=== PATIENT | female | born 1945 | race Caucasian/White ===

== ENCOUNTER 2020-11-15 12:54 | Inpatient (IN) | payer MEDICARE, OTHER ==
[~2020-11-15] VITALS: Ht 154.9 cm; Wt 67.1 kg
[2020-11-15 16:00] VITALS: BP 141/73
[2020-11-15 16:41] VITALS: BP 141/73
[2020-11-15] MEDS: ACETAMINOPHEN 325 MG TABLET PO PRN (16:41)
[2020-11-15] MEDS ORDERED: DEXTROSE 50%-WATER 25 GM/50 ML SYRINGE IVP PRN (16:45)
[2020-11-15] MEDS ORDERED: INSULIN LISPRO 100 UNITS/ML SQ PRN (16:45)
[2020-11-15 17:03] VITALS: BP 141/73
[2020-11-15] MEDS: MetFORMIN HCL 850 MG TABLET PO SCH (17:34)
[2020-11-15 17:49] LABS: GLUCOMETER DEV NAME(LOC) 2WR.2B; GLUCOSE,POINT OF CARE 147 MG/DL (70-110)
[2020-11-15] MEDS: SENNA 187 MG TABLET PO SCH (20:07)
[2020-11-15] MEDS: ATORVASTATIN CALCIUM 40 MG TABLET PO SCH (20:07)
[2020-11-15] MEDS: ETHYL ALCOHOL 62% ANTISEPTIC NASAL INHALANT 0.6 ML AMPUL NASAL SCH (20:07)
[2020-11-15] MEDS: DOCUSATE SODIUM 100 MG CAPSULE PO SCH (20:07)
[2020-11-15 21:18] LABS: GLUCOMETER DEV NAME(LOC) 2WR.1C; GLUCOSE,POINT OF CARE 101 MG/DL (70-110)
[2020-11-16 00:14] VITALS: BP 133/75
[2020-11-16] MEDS: ACETAMINOPHEN 325 MG TABLET PO PRN ×6 (00:14→23:53)
[2020-11-16 06:09] LABS: GLUCOMETER DEV NAME(LOC) 2WR.1C; GLUCOSE,POINT OF CARE 111 MG/DL (70-110)
[2020-11-16] MEDS: MetFORMIN HCL 850 MG TABLET PO SCH ×2 (08:24→17:22)
[2020-11-16] MEDS: ASPIRIN 81 MG CHEWABLE TABLET PO SCH (08:25)
[2020-11-16] MEDS: DOCUSATE SODIUM 100 MG CAPSULE PO SCH ×2 (08:25→19:45)
[2020-11-16] MEDS: HYDROCHLOROTHIAZIDE 25 MG TABLET PO SCH (08:25)
[2020-11-16] MEDS: ETHYL ALCOHOL 62% ANTISEPTIC NASAL INHALANT 0.6 ML AMPUL NASAL SCH ×2 (08:25→19:45)
[2020-11-16] MEDS: LOSARTAN POTASSIUM 50 MG TABLET PO SCH (08:26)
[2020-11-16] MEDS: ENOXAPARIN SODIUM 40 MG/0.4 ML PF SYRINGE SQ SCH (08:27)
[2020-11-16] MEDS ORDERED: LOSARTAN POTASSIUM 50 MG TABLET PO SCH (09:00)
[2020-11-16 09:20] VITALS: BP 135/63
[2020-11-16 11:15] LABS: BASOPHILS % (AUTO) 0.2 % (0.0-2.0); EOSINOPHILS % (AUTO) 3.6 % (1.0-6.0); HEMATOCRIT 32.3 % (36-46); HEMOGLOBIN 10.6 g/dL (12.0-16.0); LYMPHOCYTES # (AUTO) 1.7 K/uL (1.0-4.8); MEAN CORPUSCULAR HEMOGLOBIN 29.8 pg (26.0-34.0); MEAN CORPUSCULAR HGB CONC 32.9 G/dL (31.0-37.0); MEAN CORPUSCULAR VOLUME 90 fL (80-100); MONOCYTES # (AUTO) 0.4 K/uL (0.1-1.0); MONOCYTES % (AUTO) 6.3 % (2.0-9.0); NEUTROPHILS # (AUTO) 4.1 K/uL (1.8-7.7); NEUTROPHILS % (AUTO) 62.9 % (40.0-70.0); PLATELET COUNT (AUTO) 187 K/uL (150-450); RED BLOOD CELL COUNT(AUTO) 3.57 MIL/uL (4.00-5.20); RED CELL DISTRIBUTION WIDTH 13.4 % (11.5-14.5)
[2020-11-16 11:51] LABS: ALANINE AMINOTRANSFERASE 20 U/L (12-78); ALBUMIN 3.1 g/dL (3.4-5.0); ALKALINE PHOSPHATASE 75 U/L (46-116); ANION GAP 8 mmol/L (8-16); ASPARTATE AMINOTRANSFERASE 21 U/L (15-37); BILIRUBIN,TOTAL 0.6 mg/dL (0.1-1.0); CALCIUM, TOTAL 10.3 mg/dL (8.8-10.5); CARBON DIOXIDE 30 mmol/L (22-29); CHLORIDE 108 mmol/L (98-107); CREATININE 0.71 mg/dL (0.60-1.30); GLUCOSE,RANDOM 114 mg/dL (70-110); SODIUM SERUM 146 mmol/L (136-145); TOTAL PROTEIN, SERUM 6.7 g/dL (6.4-8.2); UREA NITROGEN, BLOOD 30 mg/dL (7-18)
[2020-11-16 11:53] LABS: GLOMERULAR FILTR. RATE CALC > 60 mL/min (>60)
[2020-11-16 13:40] LABS: GLUCOMETER DEV NAME(LOC) 2WR.1C; GLUCOSE,POINT OF CARE 112 MG/DL (70-110)
[2020-11-16 16:08] VITALS: BP 108/53
[2020-11-16 17:50] LABS: GLUCOMETER DEV NAME(LOC) 2WR.1C; GLUCOSE,POINT OF CARE 93 MG/DL (70-110)
[2020-11-16] MEDS: SENNA 187 MG TABLET PO SCH (19:45)
[2020-11-16] MEDS: ATORVASTATIN CALCIUM 40 MG TABLET PO SCH (19:45)
[2020-11-16 21:19] LABS: GLUCOMETER DEV NAME(LOC) 2WR.1C; GLUCOSE,POINT OF CARE 115 MG/DL (70-110)
[2020-11-17 00:53] VITALS: BP 130/75
[2020-11-17] MEDS: ACETAMINOPHEN 325 MG TABLET PO PRN ×6 (04:05→22:56)
[2020-11-17 06:06] LABS: GLUCOMETER DEV NAME(LOC) 2WR.2B; GLUCOSE,POINT OF CARE 100 MG/DL (70-110)
[2020-11-17] MEDS: LOSARTAN POTASSIUM 50 MG TABLET PO SCH (08:04)
[2020-11-17] MEDS: ASPIRIN 81 MG CHEWABLE TABLET PO SCH (08:04)
[2020-11-17] MEDS: HYDROCHLOROTHIAZIDE 25 MG TABLET PO SCH (08:04)
[2020-11-17] MEDS: MetFORMIN HCL 850 MG TABLET PO SCH ×2 (08:04→17:44)
[2020-11-17] MEDS: ENOXAPARIN SODIUM 40 MG/0.4 ML PF SYRINGE SQ SCH (08:04)
[2020-11-17 08:05] VITALS: BP 150/69
[2020-11-17] MEDS: DOCUSATE SODIUM 100 MG CAPSULE PO SCH ×3 (08:06→20:19)
[2020-11-17] MEDS: ETHYL ALCOHOL 62% ANTISEPTIC NASAL INHALANT 0.6 ML AMPUL NASAL SCH ×2 (09:00→20:17)
[2020-11-17 12:29] LABS: GLUCOMETER DEV NAME(LOC) 2WR.1C; GLUCOSE,POINT OF CARE 88 MG/DL (70-110)
[2020-11-17] MEDS: METHYL SALICYLATE/MENTHOL 85 GM CREAM TP PRN (15:51)
[2020-11-17 16:04] VITALS: BP 135/68
[2020-11-17] MEDS: ATORVASTATIN CALCIUM 40 MG TABLET PO SCH (20:17)
[2020-11-17] MEDS: SENNA 187 MG TABLET PO SCH ×2 (20:17→20:19)
[2020-11-17 22:02] LABS: GLUCOMETER DEV NAME(LOC) 2WR.2B; GLUCOSE,POINT OF CARE 132 MG/DL (70-110)
[2020-11-17 22:58] VITALS: BP 136/73
[2020-11-18] MEDS: ACETAMINOPHEN 325 MG TABLET PO PRN ×4 (04:02→23:44)
[2020-11-18 05:18] LABS: GLUCOMETER DEV NAME(LOC) 2WR.1C; GLUCOSE,POINT OF CARE 137 MG/DL (70-110)
[2020-11-18 06:19] LABS: GLUCOMETER DEV NAME(LOC) 2WR.1C; GLUCOSE,POINT OF CARE 101 MG/DL (70-110)
[2020-11-18] MEDS: ENOXAPARIN SODIUM 40 MG/0.4 ML PF SYRINGE SQ SCH (08:03)
[2020-11-18] MEDS: MetFORMIN HCL 850 MG TABLET PO SCH ×2 (08:03→19:52)
[2020-11-18] MEDS: ASPIRIN 81 MG CHEWABLE TABLET PO SCH (08:03)
[2020-11-18] MEDS: ETHYL ALCOHOL 62% ANTISEPTIC NASAL INHALANT 0.6 ML AMPUL NASAL SCH ×2 (08:04→20:06)
[2020-11-18] MEDS: HYDROCHLOROTHIAZIDE 25 MG TABLET PO SCH (08:04)
[2020-11-18] MEDS: DOCUSATE SODIUM 100 MG CAPSULE PO SCH ×2 (08:04→20:06)
[2020-11-18] MEDS: LOSARTAN POTASSIUM 50 MG TABLET PO SCH (08:04)
[2020-11-18 08:05] VITALS: BP 135/57
[2020-11-18 13:22] LABS: GLUCOMETER DEV NAME(LOC) 2WR.1C; GLUCOSE,POINT OF CARE 100 MG/DL (70-110)
[2020-11-18 15:41] VITALS: BP 133/82
[2020-11-18] MEDS: METHYL SALICYLATE/MENTHOL 85 GM CREAM TP PRN ×2 (15:41→21:08)
[2020-11-18] MEDS: ATORVASTATIN CALCIUM 40 MG TABLET PO SCH (20:06)
[2020-11-18] MEDS: SENNA 187 MG TABLET PO SCH (20:08)
[2020-11-18 21:47] LABS: GLUCOMETER DEV NAME(LOC) 2WR.2B; GLUCOSE,POINT OF CARE 114 MG/DL (70-110)
[2020-11-18 22:51] LABS: GLUCOMETER DEV NAME(LOC) 2WR.1C; GLUCOSE,POINT OF CARE 91 MG/DL (70-110)
[2020-11-19 00:44] VITALS: BP 147/58
[2020-11-19] MEDS ORDERED: ATOR40TA28 PO (01:10)
[2020-11-19] MEDS ORDERED: METF-961 PO (01:10)
[2020-11-19] MEDS ORDERED: LOSA50TA37 PO (01:10)
[2020-11-19] MEDS ORDERED: ACET-2247 PO (01:10)
[2020-11-19] MEDS ORDERED: HYDR25TA2 PO (01:10)
[2020-11-19] MEDS ORDERED: ASPI-1450 PO (01:10)
[2020-11-19] MEDS ORDERED: SENN8.6T90 PO (01:10)
[2020-11-19] MEDS ORDERED: DOCU-270 PO (01:10)
[2020-11-19] MEDS: ACETAMINOPHEN 325 MG TABLET PO PRN ×4 (04:42→23:25)
[2020-11-19 06:39] LABS: GLUCOMETER DEV NAME(LOC) 2WR.1C; GLUCOSE,POINT OF CARE 94 MG/DL (70-110)
[2020-11-19] MEDS: MetFORMIN HCL 850 MG TABLET PO SCH ×2 (07:57→17:37)
[2020-11-19] MEDS: DOCUSATE SODIUM 100 MG CAPSULE PO SCH ×2 (07:57→21:00)
[2020-11-19] MEDS: LOSARTAN POTASSIUM 50 MG TABLET PO SCH (07:58)
[2020-11-19] MEDS: ASPIRIN 81 MG CHEWABLE TABLET PO SCH (07:58)
[2020-11-19] MEDS: HYDROCHLOROTHIAZIDE 25 MG TABLET PO SCH (07:58)
[2020-11-19] MEDS: METHYL SALICYLATE/MENTHOL 85 GM CREAM TP PRN (08:00)
[2020-11-19] MEDS: ENOXAPARIN SODIUM 40 MG/0.4 ML PF SYRINGE SQ SCH (08:01)
[2020-11-19 09:00] VITALS: BP 137/64
[2020-11-19] MEDS: ETHYL ALCOHOL 62% ANTISEPTIC NASAL INHALANT 0.6 ML AMPUL NASAL SCH ×2 (09:00→21:16)
[2020-11-19 12:27] LABS: GLUCOMETER DEV NAME(LOC) 2WR.1C; GLUCOSE,POINT OF CARE 89 MG/DL (70-110)
[2020-11-19 16:08] VITALS: BP 131/69
[2020-11-19 17:19] LABS: GLUCOMETER DEV NAME(LOC) 2WR.1C; GLUCOSE,POINT OF CARE 98 MG/DL (70-110)
[2020-11-19] MEDS: SENNA 187 MG TABLET PO SCH (21:00)
[2020-11-19] MEDS: ATORVASTATIN CALCIUM 40 MG TABLET PO SCH (21:17)
[2020-11-19 22:38] LABS: GLUCOMETER DEV NAME(LOC) 2WR.2B; GLUCOSE,POINT OF CARE 98 MG/DL (70-110)
[2020-11-20 00:25] VITALS: BP 135/69
[2020-11-20] MEDS: ACETAMINOPHEN 325 MG TABLET PO PRN ×3 (05:08→20:39)
[2020-11-20 05:41] LABS: GLUCOMETER DEV NAME(LOC) 2WR.2B; GLUCOSE,POINT OF CARE 84 MG/DL (70-110)
[2020-11-20 08:19] VITALS: BP 135/57
[2020-11-20] MEDS: MetFORMIN HCL 850 MG TABLET PO SCH ×2 (08:58→17:33)
[2020-11-20] MEDS: ETHYL ALCOHOL 62% ANTISEPTIC NASAL INHALANT 0.6 ML AMPUL NASAL SCH ×2 (08:58→20:39)
[2020-11-20] MEDS: ASPIRIN 81 MG CHEWABLE TABLET PO SCH (08:59)
[2020-11-20] MEDS: DOCUSATE SODIUM 100 MG CAPSULE PO SCH ×2 (09:00→20:38)
[2020-11-20] MEDS: HYDROCHLOROTHIAZIDE 25 MG TABLET PO SCH (09:00)
[2020-11-20] MEDS: LOSARTAN POTASSIUM 50 MG TABLET PO SCH (09:00)
[2020-11-20] MEDS: ENOXAPARIN SODIUM 40 MG/0.4 ML PF SYRINGE SQ SCH (09:01)
[2020-11-20] MEDS: METHYL SALICYLATE/MENTHOL 85 GM CREAM TP PRN (12:06)
[2020-11-20 12:37] LABS: GLUCOMETER DEV NAME(LOC) 2WR.2B; GLUCOSE,POINT OF CARE 102 MG/DL (70-110)
[2020-11-20 16:01] VITALS: BP 140/28
[2020-11-20 18:28] LABS: GLUCOMETER DEV NAME(LOC) 2WR.1C; GLUCOSE,POINT OF CARE 87 MG/DL (70-110)
[2020-11-20] MEDS: SENNA 187 MG TABLET PO SCH (20:38)
[2020-11-20] MEDS: ATORVASTATIN CALCIUM 40 MG TABLET PO SCH (20:38)
[2020-11-20 21:19] LABS: GLUCOMETER DEV NAME(LOC) 2WR.2B; GLUCOSE,POINT OF CARE 70 MG/DL (70-110)
[2020-11-21 04:09] VITALS: BP 145/71
[2020-11-21] MEDS: ACETAMINOPHEN 325 MG TABLET PO PRN ×4 (04:09→18:06)
[2020-11-21 05:50] LABS: GLUCOMETER DEV NAME(LOC) 2WR.2B; GLUCOSE,POINT OF CARE 83 MG/DL (70-110)
[2020-11-21] MEDS: MetFORMIN HCL 850 MG TABLET PO SCH (08:03)
[2020-11-21] MEDS: ETHYL ALCOHOL 62% ANTISEPTIC NASAL INHALANT 0.6 ML AMPUL NASAL SCH ×2 (08:04→20:33)
[2020-11-21] MEDS: HYDROCHLOROTHIAZIDE 25 MG TABLET PO SCH (08:04)
[2020-11-21] MEDS: DOCUSATE SODIUM 100 MG CAPSULE PO SCH ×2 (08:04→20:33)
[2020-11-21] MEDS: ENOXAPARIN SODIUM 40 MG/0.4 ML PF SYRINGE SQ SCH (08:04)
[2020-11-21] MEDS: ASPIRIN 81 MG CHEWABLE TABLET PO SCH (08:04)
[2020-11-21] MEDS: LOSARTAN POTASSIUM 50 MG TABLET PO SCH (08:04)
[2020-11-21 08:10] VITALS: BP 144/56
[2020-11-21 13:08] LABS: GLUCOMETER DEV NAME(LOC) 2WR.2B; GLUCOSE,POINT OF CARE 95 MG/DL (70-110)
[2020-11-21] MEDS: MetFORMIN HCL 500 MG TABLET PO SCH (17:32)
[2020-11-21] MEDS: METHYL SALICYLATE/MENTHOL 85 GM CREAM TP PRN (20:32)
[2020-11-21] MEDS: ATORVASTATIN CALCIUM 40 MG TABLET PO SCH (20:33)
[2020-11-21] MEDS: SENNA 187 MG TABLET PO SCH (20:33)
[2020-11-21 21:16] LABS: GLUCOMETER DEV NAME(LOC) 2WR.2B; GLUCOSE,POINT OF CARE 83 MG/DL (70-110)
[2020-11-21 21:21] LABS: GLUCOMETER DEV NAME(LOC) 2WR.1C; GLUCOSE,POINT OF CARE 81 MG/DL (70-110)
[2020-11-22 04:09] VITALS: BP_SYST 148; BP_SYST 154; BP_DIAS 62
[2020-11-22] MEDS: ACETAMINOPHEN 325 MG TABLET PO PRN ×4 (04:09→23:18)
[2020-11-22 06:04] LABS: GLUCOMETER DEV NAME(LOC) 2WR.2B; GLUCOSE,POINT OF CARE 95 MG/DL (70-110)
[2020-11-22] MEDS: ASPIRIN 81 MG CHEWABLE TABLET PO SCH (08:26)
[2020-11-22] MEDS: LOSARTAN POTASSIUM 50 MG TABLET PO SCH (08:26)
[2020-11-22] MEDS: HYDROCHLOROTHIAZIDE 25 MG TABLET PO SCH (08:26)
[2020-11-22] MEDS: MetFORMIN HCL 500 MG TABLET PO SCH ×2 (08:26→17:26)
[2020-11-22 08:27] VITALS: BP 145/74
[2020-11-22] MEDS: ENOXAPARIN SODIUM 40 MG/0.4 ML PF SYRINGE SQ SCH (08:27)
[2020-11-22] MEDS: ETHYL ALCOHOL 62% ANTISEPTIC NASAL INHALANT 0.6 ML AMPUL NASAL SCH ×2 (08:29→20:07)
[2020-11-22] MEDS: DOCUSATE SODIUM 100 MG CAPSULE PO SCH ×2 (08:32→20:07)
[2020-11-22 13:09] LABS: GLUCOMETER DEV NAME(LOC) 2WR.2B; GLUCOSE,POINT OF CARE 86 MG/DL (70-110)
[2020-11-22 16:24] VITALS: BP 147/67
[2020-11-22 18:43] LABS: GLUCOMETER DEV NAME(LOC) 2WR.1C; GLUCOSE,POINT OF CARE 112 MG/DL (70-110)
[2020-11-22] MEDS: METHYL SALICYLATE/MENTHOL 85 GM CREAM TP PRN (20:06)
[2020-11-22] MEDS: ATORVASTATIN CALCIUM 40 MG TABLET PO SCH (20:07)
[2020-11-22] MEDS: SENNA 187 MG TABLET PO SCH (20:08)
[2020-11-22 21:32] LABS: GLUCOMETER DEV NAME(LOC) 2WR.1C; GLUCOSE,POINT OF CARE 103 MG/DL (70-110)
[2020-11-23 00:18] VITALS: BP 137/64
[2020-11-23] MEDS: ACETAMINOPHEN 325 MG TABLET PO PRN (04:36)
[2020-11-23 06:19] LABS: GLUCOMETER DEV NAME(LOC) 2WR.1C; GLUCOSE,POINT OF CARE 92 MG/DL (70-110)
[2020-11-23 08:01] VITALS: BP 144/53
[2020-11-23] MEDS: ETHYL ALCOHOL 62% ANTISEPTIC NASAL INHALANT 0.6 ML AMPUL NASAL SCH (08:48)
[2020-11-23] MEDS: MetFORMIN HCL 500 MG TABLET PO SCH (08:48)
[2020-11-23] MEDS: ASPIRIN 81 MG CHEWABLE TABLET PO SCH (08:48)
[2020-11-23] MEDS: DOCUSATE SODIUM 100 MG CAPSULE PO SCH (08:49)
[2020-11-23] MEDS: LOSARTAN POTASSIUM 50 MG TABLET PO SCH (08:50)
[2020-11-23] MEDS: HYDROCHLOROTHIAZIDE 25 MG TABLET PO SCH (08:50)
[2020-11-23] MEDS: ENOXAPARIN SODIUM 40 MG/0.4 ML PF SYRINGE SQ SCH (08:52)
[2020-11-23] MEDS ORDERED: ENOX40DI9 SQ (09:38)
[2020-11-23 12:40] LABS: GLUCOMETER DEV NAME(LOC) 2WR.2B; GLUCOSE,POINT OF CARE 88 MG/DL (70-110)
== END 2020-11-23 14:45 | disposition home health service (06) | DRG 536 ==
LOC: 2WR 15:32
PROVIDERS: ADMIT Physical Medicine & Rehabilitation; ATTEND Physical Medicine & Rehabilitation
DX: S72.141A Displaced intertrochanteric fracture of right femur, initial encounter for closed fracture (principal); I69.351 Hemiplegia and hemiparesis following cerebral infarction affecting right dominant side; E11.9 Type 2 diabetes mellitus without complications; I10 Essential (primary) hypertension; D64.9 Anemia, unspecified; Z86.12 Personal history of poliomyelitis; W19.XXXA Unspecified fall, initial encounter
CPT/HCPCS: 80053; 82962; 83036; 85025; 87081; 97110; 97116; 97150; 97162; 97165; 97530; 97535; 99366; J1650